=== PATIENT | female | born 1985 | race Caucasian/White ===

== ENCOUNTER 2017-11-03 13:41 | Emergency (ER) | payer OTHER ==
[~2017-11-03] VITALS: Ht 165.1 cm; Wt 73.0 kg
[2017-11-03] MEDS ORDERED: CLEOCIN300 MG PO (14:57)
[2017-11-03] MEDS ORDERED: PERCOCET 5/31 TABLET PO (14:57)
[2017-11-03 15:17] VITALS: BP 131/68
== END 2017-11-03 15:18 | disposition home or self-care (01) ==
LOC: EME 13:41
PROC: 2W3GX1Z Immobilization of Right Thumb using Splint (ICD-10-PCS; principal; 2017-11-03)
DX: S62.524A Nondisplaced fracture of distal phalanx of right thumb, initial encounter for closed fracture (principal); L03.011 Cellulitis of right finger; S61.001A Unspecified open wound of right thumb without damage to nail, initial encounter; W23.0XXA Caught, crushed, jammed, or pinched between moving objects, initial encounter; F17.200 Nicotine dependence, unspecified, uncomplicated
CPT/HCPCS: 73130; 99281; 99284

== ENCOUNTER 2017-11-18 01:11 | Emergency (ER) | payer OTHER ==
[~2017-11-18] VITALS: Ht 165.1 cm; Wt 72.1 kg
[~2017-11-18 01:11] MED LIST: CLEOCIN300 MG PO; PERCOCET 5/31 TABLET PO
[2017-11-18] MEDS ORDERED: PERCOCET 5/31 TABLET PO (04:32)
[2017-11-18 04:54] VITALS: BP 119/85
== END 2017-11-18 04:55 | disposition home or self-care (01) ==
LOC: EME 01:11
DX: S06.0X0A Concussion without loss of consciousness, initial encounter (principal); S02.2XXA Fracture of nasal bones, initial encounter for closed fracture; W10.9XXA Fall (on) (from) unspecified stairs and steps, initial encounter; M25.561 Pain in right knee; M54.9 Dorsalgia, unspecified; M79.604 Pain in right leg; R60.9 Edema, unspecified; F17.200 Nicotine dependence, unspecified, uncomplicated; Z88.8 Allergy status to other drugs, medicaments and biological substances
CPT/HCPCS: 70450; 70486; 72100; 72170; 73552; J2270